=== PATIENT | female | born 2000 | race Two or more races ===

== ENCOUNTER 2018-07-10 07:30 | Inpatient (IN) | payer OTHER ==
[2018-07-10] MEDS ORDERED: fentaNYL 100 MCG/2 ML SDV EPIDUR PRN (19:35)
[2018-07-10] MEDS ORDERED: Ondansetron 4 MG/2 ML SDV IVPUSH PRN (19:35)
[2018-07-10] MEDS ORDERED: diphenhydrAMINE 50 MG/ML SDV IVPUSH PRN (19:35)
[2018-07-10] MEDS ORDERED: ePHEDrine 50 MG/ML SDV IVPUSH PRN (19:35)
[2018-07-10] MEDS ORDERED: Phenylephrine 1 MG in Sodium Chloride 0.9% 10 ML IV SCH (19:45)
[2018-07-10] MEDS ORDERED: Nalbuphine 20 MG/ML 1 ML Syringe IVPUSH PRN (20:03)
[2018-07-10] MEDS ORDERED: Sodium Chloride 0.9% 10 ML Syringe FLUSH PRN (20:03)
[2018-07-10] MEDS ORDERED: Oxytocin/Lactated Ringers 10 UNIT/1,000 ML BAG IV SCH ×2 (20:15)
[2018-07-10] MEDS: Lactated Ringers 1,000 ML IV SCH (20:36)
--- NOTE | 2018-07-10 21:15 | PCM.LDHP ---
L&D History of Present Illness - General Date of Service: 07/10/18 Admit Problem/Dx: Patient Status Order with Admit Dx/Problem 07/10/18 20:03 Patient Status [ADT] Routine Admission Diagnosis/Problem Admission Diagnosis/Problem Source of Information: Patient History Limitations: Reports: No Limitations - History of Present Illness Introduction:: Caitlin Gilliland is a 18-year-old at 39 weeks 3 days by LMP consistent with 7 week ultrasound (JUANJOSE 07/14/2018) who presents for induction of labor with trial of labor after section. She reports that she has had some occasional contractions since her last visit but they have been inconsistent and mild to moderate in the amount of pain. She denies any leaking of fluid or vaginal bleeding. Reports good movement. Timing/Duration: Reports: intermittent Location, : Reports: Abdomen, Pelvic Quality: Reports: Ache, Pressure Severity: Mild (To moderate) Associated Symptoms: Denies: vaginal bleeding, vaginal discharge, vaginal fluid Present Illness Comments:: Caitlin Gilliland is a 18-year-old 001 at 39 weeks 3 days by LMP consistent with seven-week ultrasound (JUANJOSE 07/14/2018) who presents for induction of labor with trial of labor after section. She has had routine care with myself starting at 7 weeks gestational age. Her has been overall uncomplicated. She received TDaP on 06/17/2018. She declined flu vaccine. labs Blood type: O+ Antibody screen: Negative First trimester hematocrit/hemoglobin: 38.3%/13.1 on 11/26/2017 Platelets: 217 on 11/26/2017 Urine culture: Mixed jose suggestive of contamination Rubella status: Immune Hepatitis B surface antigen: Negative RPR: Negative HIV: Negative Gonorrhea: Negative Chlamydia: Negative Anatomy ultrasound: Overall normal anatomy except for a cystic area in the right abdomen measuring 1.4 cm, anterior placenta, 338 g (40th percentile) . Detailed anatomy ultrasound done on 03/28/[address] Watson's office showed normal anatomy with gallbladder visualized, no evidence of abnormal cystic structure. EFW 790 g (71st percentile), growth ultrasound on 05/20/2018 showed marginal insertion of the cord, EFW 2215 g (91st percentile). Repeat growth ultrasound on 06/24/2018 showed EFW 3449 g (7 lbs. 10 oz.) (64th percentile ), anterior placenta. One hour glucose tolerance test: 118 Second trimester hematocrit/hemoglobin: 36.7%/12.3 on 03/28/2018 Platelets: 158 on 03/28/2018 GBS status: Negative complicated by: * History of section with last delivery on 07/07/2017. weight was 8 lbs. 6 oz. and was done for indications with a nuchal cord present. 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: 1 - Past Surgical History Female Surgical History: Reports: Section (07/07/2017) Social & Family History - Tobacco Use Smoking Status *Q: Never Smoker Tobacco Use Within Last Twelve Months: No - Tobacco Core Measures Tobacco Use/Smoking Within Last 30 Days: No Smokeless Tobacco Use in Last 30 Days: No - Alcohol Use Alcohol Use History: No - Recreational Drug Use Recreational Drug Use: No Drug Use in Last 12 Months: No - Living Situation & Occupation Living situation: Reports: Single, with Significant Other H&P Review of Systems - Review of Systems: Review Of Systems: See Below General: Denies: Fever, Chills, Malaise, Weakness, Fatigue HEENT: Reports: Headaches, Sinus Congestion. Denies: Post Nasal Drip, Sore Throat, Visual Changes Pulmonary: Denies: Shortness of Breath, Wheezing, Cough Cardiovascular: Denies: Chest Pain, Palpitations, Dyspnea on Exertion Gastrointestinal: Denies: Abdominal Pain, Constipation, Diarrhea, Nausea, Vomiting Genitourinary: Denies: Dysuria, Frequency, Burning, Pain, Urgency Musculoskeletal: Reports: Back Pain (And hip pain of ) Skin: Denies: Rash, Lesions Psychiatric: Denies: Depression, Anxiety L&D Exam - Exam Exam: See Below - Vital Signs Weight: 88.904 kg - OB Specific Contraction Duration (sec): 40-75 Contraction Frequency (min): 2-4 Contraction Intensity: Mild to Moderate Movement: Active Heart Tones: Present Heart Tones per Min: 130 (+15 x 15 accelerations, intermittent variable decelerations) Heart Rate (FHR) Variability: Moderate (6-25 bmp) Presentation: Vertex Estimated Weight: 7-7.5 pounds by Sae's - Colbert Score Colbert Score Cervix Position: Midposition Colbert Score Consistency: Soft Colbert Score Effacement: >80% (80%) Colbert Score Dilation: 3-4 cm (3.5 cm) Colbert Score Infant's Station: -3 (-4) Colbert Score Total: 8 - Exam General: Alert, Oriented HEENT: Conjunctiva Clear, EOMI Neck: Supple, Trachea Midline Lungs: Clear to Auscultation, Normal Respiratory Effort Cardiovascular: Regular Rate, Regular Rhythm GI/Abdominal Exam: Soft, Non-Tender, No Distention. No: Guarding, Rigid, Rebound Genitourinary: Normal external exam Back Exam: Normal Inspection, Full Range of Motion Extremities: Normal Inspection, No Pedal Edema Skin: Warm, Dry, Intact Psychiatric: Alert, Normal Affect, Normal Mood - Patient Data Lab Results Last 24 hrs: Laboratory Results - last 24 hr 07/10/18 Range/Units 20:15 WBC 7.09 (3.98-10.04) K/mm3 RBC 3.84 L (3.98-5.22) M/mm3 Hgb 9.3 L (11.2-15.7) gm/L Hct 29.5 L (34.1-44.9) % MCV 76.8 L (79.4-94.8) fl MCH 24.2 L (25.6-32.2) pg MCHC 31.5 L (32.2-35.5) g/dl RDW Std Deviation 41.7 (36.4-46.3) fL Plt Count 132 L (182-369) K/mm3 MPV 13.2 H (9.4-12.3) fl Neut % (Auto) 64.7 (34.0-71.1) % Lymph % (Auto) 25.2 (19.3-51.7) % Garza % (Auto) 9.0 (4.7-12.5) % Eos % (Auto) 0.7 (0.7-5.8) Baso % (Auto) 0.1 (0.1-1.2) % Neut # (Auto) 4.58 (1.56-6.13) K/mm3 Lymph # (Auto) 1.79 (1.18-3.74) K/mm3 Garza # (Auto) 0.64 H (0.24-0.36) K/mm3 Eos # (Auto) 0.05 (0.04-0.36) K/mm3 Baso # (Auto) 0.01 (0.01-0.08) K/mm3 Manual Slide Review Abnormal smear Result Diagrams: 07/10/18 20:15 - Problem List (1) 39 weeks gestation of SNOMED Code(s): 50223060 ICD Code: Z3A.39 - 39 WEEKS GESTATION OF Status: Acute Current Visit: Yes (2) History of section SNOMED Code(s): 002715145 ICD Code: Z98.891 - HISTORY OF UTERINE SCAR FROM PREVIOUS SURGERY Status: Acute Current Visit: Yes (3) History of section complicating SNOMED Code(s): 621984321, 654373066 ICD Code: O34.219 - MATERNAL CARE FOR UNSP TYPE SCAR FROM PREVIOUS DEL Status: Acute Current Visit: Yes (4) Short interval between pregnancies affecting in third trimester, antepartum SNOMED Code(s): 55317922, 80177205 ICD Code: O09.893 - SUPERVISION OF OTHER HIGH RISK PREGNANCIES, THIRD TRIMESTER Status: Acute Current Visit: Yes Problem List Initiated/Reviewed/Updated: Yes Orders Last 24hrs: Active Orders 24 hr Category Date Time Status Patient Status [ADT] Routine ADT 07/10/18 20:03 Active Activity as Tolerated [RC] PFP Care 07/10/18 20:03 Active Communication Order [RC] ASDIRECTED Care 07/10/18 20:03 Active Heart Tones [RC] ASDIRECTED Care 07/10/18 20:04 Active Non Stress Test [RC] PER UNIT ROUTINE Care 07/10/18 20:03 Active Notify Provider [RC] ASDIRECTED Care 07/10/18 19:35 Active Notify Provider [RC] PFP Care 07/10/18 20:03 Active Notify Provider [RC] PRN Care 07/10/18 20:03 Active Oxygen Therapy [RC] ASDIRECTED Care 07/10/18 19:35 Active Peripheral IV Care [RC] . DIRECTED Care 07/10/18 20:04 Active Pulse Oximetry [RC] ASDIRECTED Care 07/10/18 19:35 Active Vital Signs [RC] PER UNIT ROUTINE Care 07/10/18 20:03 Active Regular Diet [DIET] Diet 07/10/18 Breakfast Active RAPID PLASMA REAGIN,RPR [CHEM] Routine Lab 07/10/18 20:15 Received TYPE AND SCREEN [BBK] Stat Lab 07/10/18 20:15 Received Lactated Ringers [Ringers, Lactated] 1,000 ml Med 07/10/18 20:15 Active IV ASDIRECTED Nalbuphine [Nubain] Med 07/10/18 20:03 Active 10 mg IVPUSH Q2H PRN Ondansetron [Zofran] Med 07/10/18 19:35 Active 4 mg IVPUSH ONETIME PRN Oxytocin/Lactated Ringers [Pitocin in LR 10 Units/1,000 Med 07/10/18 20:15 Active ML] 10 unit in 1,000 ml IV .CONTINUOUS Oxytocin/Lactated Ringers [Pitocin in LR 10 Units/1,000 Med 07/10/18 20:15 Active ML] 10 unit in 1,000 ml IV TITRATE Phenylephrine [Dominik-Synephrine] 1 mg Med 07/10/18 19:45 Active Sodium Chloride 0.9% [Normal Saline] 10 ml IV TITRATE Sodium Chloride 0.9% [Saline Flush] Med 07/10/18 20:03 Active 10 ml FLUSH ASDIRECTED PRN diphenhydrAMINE [Benadryl] Med 07/10/18 19:35 Active 25 mg IVPUSH Q6H PRN ePHEDrine [ePHEDrine sulfate] Med 07/10/18 19:35 Active 5 mg IVPUSH ASDIRECTED PRN fentaNYL [Sublimaze] Med 07/10/18 19:35 Active 100 mcg EPIDUR Q3H PRN fentaNYL/Bupivacaine/NS/PF [hrmsaWLR-Hpfji-BE 2 MCG/ML- Med 07/10/18 19:45 Active 0.125%] 100 ml EP ASDIRECTED Electronic Heart Tones Ext w TOCO [WOMSER] Oth 07/10/18 20:03 Ordered Routine Electronic Heart Tones Internal [WOMSER] Per Unit Ot 07/10/18 20:03 Ordered Routine Peripheral IV Insertion Adult [OM.PC] Routine Oth 07/10/18 20:03 Ordered Resuscitation Status Routine Resus Stat 07/10/18 20:03 Ordered Medication Orders Diphenhydramine HCl (Benadryl) 25 mg IVPUSH Q6H PRN PRN Reason: pruritis Ephedrine Sulfate (Ephedrine Sulfate) 5 mg IVPUSH ASDIRECTED PRN PRN Reason: Hypotension Fentanyl (Sublimaze) 100 mcg EPIDUR Q3H PRN PRN Reason: Pain Fentanyl/Bupivacaine HCl (Vgpiyprp-Euzwm-Vm 2 Mcg/Ml-0.125%) 100 ml EP ASDIRECTED CLAY Phenylephrine HCl 1 mg/ Sodium (Chloride) 10.1 mls @ 1 mls/sec IV TITRATE CLAY; Protocol Lactated Ringer's (Ringers, Lactated) 1,000 mls @ 100 mls/hr IV ASDIRECTED CLAY Last Admin: 07/10/18 20:36 Dose: 100 mls/hr Oxytocin/Lactated Ringer's (Pitocin In Lr 10 Units/1,000 Ml) 10 unit in 1,000 mls @ 12 mls/hr IV TITRATE CLAY; Protocol Last Admin: 07/10/18 20:37 Dose: 2 munits/min, 12 mls/hr Oxytocin/Lactated Ringer's (Pitocin In Lr 10 Units/1,000 Ml) 10 unit in 1,000 mls @ 500 mls/hr IV .CONTINUOUS CLAY Nalbuphine HCl (Nubain) 10 mg IVPUSH Q2H PRN PRN Reason: pain Ondansetron HCl (Zofran) 4 mg IVPUSH ONETIME PRN PRN Reason: Nausea/Vomiting Sodium Chloride (Saline Flush) 10 ml FLUSH ASDIRECTED PRN PRN Reason: Keep Vein Open Assessment/Plan Comment:: Refer to observation for elective induction of labor with trial of labor after section. The risks, benefits and alternatives were discussed with the patient including risk of uterine rupture, injury to surrounding organs including bowel, bladder and ureters and infant as well as poor outcome. Patient signed consent for trial of labor after section with possible repeat section. Continue Pitocin for induction of labor Continuous monitoring Place IV and have Lactated Ringer's at 125 ml/hr May have small amounts of regular diet Activity as tolerated May have epidural as desired Plans to breast-feed after delivery Anticipate vaginal delivery unless otherwise indicated Wesley Noguera M.D. 9:23 PM 07/10/2018
[2018-07-10] MEDS ORDERED: Bupivacaine 0.25% 10 ML SDV ONE (22:00)
[2018-07-10] MEDS ORDERED: Lidocaine 1.5% with EPINEPHrine 1:200,000 5 ML Amp ONE (22:00)
[2018-07-11] MEDS: Lactated Ringers 1,000 ML IV SCH ×4 (02:37→10:31)
--- NOTE | 2018-07-11 03:04 | PCM.PREANE ---
Preanesthetic Assessment - Anesthesia/Transfusion/Family Hx Anesthesia History: Prior Anesthesia Without Reaction Family History of Anesthesia Reaction: No Transfusion History: No Prior Transfusion(s) Intubation History: Unknown - Review of Systems General: No Symptoms Pulmonary: No Symptoms Cardiovascular: No Symptoms Gastrointestinal: No Symptoms (GERD) Neurological: No Symptoms, Headache Other: Reports: None, Easy Bruising, Sinus Problem (sinus congestion) - Physical Assessment NPO Status Date: 07/10/18 NPO Status Time: 22:00 Pulse: 92 O2 Sat by Pulse Oximetry: 99 Respiratory Rate: 16 Blood Pressure: 127/80 Temperature: 36.9 C Vital Signs: Last Vital Signs Temp 36.9 C 07/10/18 20:03 Pulse 92 07/10/18 20:03 Resp 16 07/10/18 20:03 BP 127/80 07/10/18 20:03 Pulse Ox 99 07/10/18 20:03 Height: 1.65 m Weight: 88.904 kg ASA Class: 2 Mental Status: Alert & Oriented x3 Airway Class: Mallampati = 2 Dentition: Reports: Normal Dentition, Caries Thyro-Mental Finger Breadths: 3 Mouth Opening Finger Breadths: 3 ROM/Head Extension: Full Lungs: Clear to Auscultation, Normal Respiratory Effort Cardiovascular: Regular Rate, Regular Rhythm, No Murmurs - Lab Values: Laboratory Last Values WBC 7.09 K/mm3 (3.98-10.04) 07/10/18 20:15 RBC 3.84 M/mm3 (3.98-5.22) L 07/10/18 20:15 Hgb 9.3 gm/L (11.2-15.7) L 07/10/18 20:15 Hct 29.5 % (34.1-44.9) L 07/10/18 20:15 MCV 76.8 fl (79.4-94.8) L 07/10/18 20:15 MCH 24.2 pg (25.6-32.2) L 07/10/18 20:15 MCHC 31.5 g/dl (32.2-35.5) L 07/10/18 20:15 RDW Std Deviation 41.7 fL (36.4-46.3) 07/10/18 20:15 Plt Count 132 K/mm3 (182-369) L 07/10/18 20:15 MPV 13.2 fl (9.4-12.3) H 07/10/18 20:15 Neut % (Auto) 64.7 % (34.0-71.1) 07/10/18 20:15 Lymph % (Auto) 25.2 % (19.3-51.7) 07/10/18 20:15 Scott % (Auto) 9.0 % (4.7-12.5) 07/10/18 20:15 Eos % (Auto) 0.7 (0.7-5.8) 07/10/18 20:15 Baso % (Auto) 0.1 % (0.1-1.2) 07/10/18 20:15 Neut # (Auto) 4.58 K/mm3 (1.56-6.13) 07/10/18 20:15 Lymph # (Auto) 1.79 K/mm3 (1.18-3.74) 07/10/18 20:15 Scott # (Auto) 0.64 K/mm3 (0.24-0.36) H 07/10/18 20:15 Eos # (Auto) 0.05 K/mm3 (0.04-0.36) 07/10/18 20:15 Baso # (Auto) 0.01 K/mm3 (0.01-0.08) 07/10/18 20:15 Manual Slide Review Abnormal smear 07/10/18 20:15 Blood Type O POSITIVE 07/10/18 20:15 Gel Antibody Screen Negative 07/10/18 20:15 Above labs reviewed and noted and within acceptable ranges to proceed with epidural. - Allergies Allergies/Adverse Reactions: Allergies Allergy/AdvReac Type Severity Reaction Status Date / Time No Known Allergies Allergy Verified 07/10/18 20:08 - Anesthesia Plan Pre-Op Medication Ordered: None - Acknowledgements Anesthesia Type Planned: Epidural Pt an Appropriate Candidate for the Planned Anesthesia: Yes Alternatives and Risks of Anesthesia Discussed w Pt/Guardian: Yes Pt/Guardian Understands and Agrees with Anesthesia Plan: Yes PreAnesthesia Questionnaire - Past Health History Medical/Surgical History: Denies Medical/Surgical History HEENT History: Reports: None Cardiovascular History: Reports: None Respiratory History: Reports: None Gastrointestinal History: Reports: GERD (In ), Hepatitis (As a child, likely hepatitis A) [employer] History: Reports: - Past Surgical History Female Surgical History: Reports: Section (07/07/2017) - SUBSTANCE USE Smoking Status *Q: Never Smoker Tobacco Use Within Last Twelve Months: No Second Hand Smoke Exposure: No Recreational Drug Use History: No - HOME MEDS Home Medications: Home Meds PNV95/Ferrous Fumarate/FA [ Tablet] 1 each PO DAILY 07/10/18 [History] - CURRENT (IN HOUSE) MEDS Current Meds: Current Medications Diphenhydramine HCl (Benadryl) 25 mg IVPUSH Q6H PRN PRN Reason: pruritis Ephedrine Sulfate (Ephedrine Sulfate) 5 mg IVPUSH ASDIRECTED PRN PRN Reason: Hypotension Fentanyl (Sublimaze) 100 mcg EPIDUR Q3H PRN PRN Reason: Pain Fentanyl/Bupivacaine HCl (Yzmyousv-Jsvyf-Ce 2 Mcg/Ml-0.125%) 100 ml EP ASDIRECTED CLAY Phenylephrine HCl 1 mg/ Sodium (Chloride) 10.1 mls @ 1 mls/sec IV TITRATE CLAY; Protocol Lactated Ringer's (Ringers, Lactated) 1,000 mls @ 100 mls/hr IV ASDIRECTED CLAY Last Admin: 07/11/18 02:37 Dose: 900 mls/hr Oxytocin/Lactated Ringer's (Pitocin In Lr 10 Units/1,000 Ml) 10 unit in 1,000 mls @ 12 mls/hr IV TITRATE CLAY; Protocol Last Titration: 07/11/18 01:00 Dose: 6 munits/min, 36 mls/hr Oxytocin/Lactated Ringer's (Pitocin In Lr 10 Units/1,000 Ml) 10 unit in 1,000 mls @ 500 mls/hr IV .CONTINUOUS CLAY Nalbuphine HCl (Nubain) 10 mg IVPUSH Q2H PRN PRN Reason: pain Ondansetron HCl (Zofran) 4 mg IVPUSH ONETIME PRN PRN Reason: Nausea/Vomiting Sodium Chloride (Saline Flush) 10 ml FLUSH ASDIRECTED PRN PRN Reason: Keep Vein Open
[2018-07-11] MEDS: fentaNYL/Bupivacaine-NS 2 MCG/ML-0.125%/PF 100 ML Bag EP SCH ×2 (03:16→09:24)
--- NOTE | 2018-07-11 11:26 | PCM.PNLD ---
Labor Progress Note - VS & Meds Vital Signs: Last Vital Signs Temp 36.9 C 07/11/18 03:15 Pulse 92 07/11/18 03:15 Resp 16 07/11/18 03:15 BP 127/80 07/11/18 03:15 Pulse Ox 99 07/11/18 03:15 Active Medications: Current Medications Diphenhydramine HCl (Benadryl) 25 mg IVPUSH Q6H PRN PRN Reason: pruritis Ephedrine Sulfate (Ephedrine Sulfate) 5 mg IVPUSH ASDIRECTED PRN PRN Reason: Hypotension Fentanyl (Sublimaze) 100 mcg EPIDUR Q3H PRN PRN Reason: Pain Last Admin: 07/11/18 03:16 Dose: 100 mcg Fentanyl/Bupivacaine HCl (Ryhkruys-Ruoxj-Rx 2 Mcg/Ml-0.125%) 100 ml EP ASDIRECTED CLAY Last Admin: 07/11/18 09:24 Dose: 100 ml Phenylephrine HCl 1 mg/ Sodium (Chloride) 10.1 mls @ 1 mls/sec IV TITRATE CLAY; Protocol Lactated Ringer's (Ringers, Lactated) 1,000 mls @ 100 mls/hr IV ASDIRECTED CLAY Last Admin: 07/11/18 10:31 Dose: 100 mls/hr Oxytocin/Lactated Ringer's (Pitocin In Lr 10 Units/1,000 Ml) 10 unit in 1,000 mls @ 12 mls/hr IV TITRATE CLAY; Protocol Last Titration: 07/11/18 01:00 Dose: 6 munits/min, 36 mls/hr Oxytocin/Lactated Ringer's (Pitocin In Lr 10 Units/1,000 Ml) 10 unit in 1,000 mls @ 500 mls/hr IV .CONTINUOUS CLAY Nalbuphine HCl (Nubain) 10 mg IVPUSH Q2H PRN PRN Reason: pain Ondansetron HCl (Zofran) 4 mg IVPUSH ONETIME PRN PRN Reason: Nausea/Vomiting Sodium Chloride (Saline Flush) 10 ml FLUSH ASDIRECTED PRN PRN Reason: Keep Vein Open - Uterine Contractions Uterine Monitoring Mode: External [place] Contraction Frequency (min): 2-3 Contraction Duration (sec): 60-75 Contraction Intensity: Moderate Uterine Resting Tone: Soft - Monitoring Monitor Mode: Doppler/Auscultation Heart Rate (FHR) Baseline: 150 Heart Rate (FHR) Per Doppler: 150 Heart Rate (FHR) Variability: Moderate (6-25 bmp) Accelerations: Present, 15x15 Decelerations: None Strip Review: Category I - Vaginal Exam Dilation (cm): 8 Effacement (Percent): 90 Station: -2 Cervical Position: Anterior Sterile Vaginal Exam Performed By: Wesley Noguera Vaginal Exam Comment: Intrauterine pressure catheter inserted manually without complications. Mother and baby tolerated without difficulty. - Labor Progress (Free Text) Labor Progress: Patient with slow progress from this morning but uncertain of the intensity of contractions. She was having a good contraction pattern every 2-3 minutes. We will restart Pitocin to try to get to an adequate contraction pattern with greater than 200 [place] units. IUPC placed for monitoring of uterine contraction pattern Continue close monitoring of contraction pattern with Pitocin as well as monitoring. Continue with epidural for anesthesia. Anticipate vaginal delivery unless otherwise indicated. Wesley Noguera M.D. 11:28 AM 07/11/2018
[2018-07-11] MEDS ORDERED: Citric Acid/Sodium Citrate Solution 30 ML Cup PO ONE (12:56)
[2018-07-11] MEDS ORDERED: Metoclopramide 10 MG/2 ML SDV IVPUSH ONE (12:56)
[2018-07-11] MEDS ORDERED: Oxytocin 10 Units/1 ML SDV ONE (13:01)
[2018-07-11] MEDS ORDERED: ceFAZolin 1 GM Vial ONE (13:01)
[2018-07-11] MEDS ORDERED: Ketorolac 30 MG/ML SDV ONE (13:01)
[2018-07-11] MEDS ORDERED: Lactated Ringers 2,000 ML ONE (13:01)
[2018-07-11] MEDS ORDERED: Ondansetron 4 MG/2 ML SDV ONE (13:01)
[2018-07-11] MEDS ORDERED: Morphine PF 1 MG/ML Amp ONE (13:01)
[2018-07-11] MEDS ORDERED: Bupivacaine 0.5% 30 ML SDV ONE (13:02)
[2018-07-11] MEDS ORDERED: Lidocaine 2% with EPINEPHrine 1:200,000 20 ML SDV ONE (13:03)
[2018-07-11] MEDS ORDERED: Sodium Bicarbonate 8.4% 50 MEQ/50 ML SDV ONE (13:03)
[2018-07-11] MEDS ORDERED: Sodium Chloride 0.9% 10 ML Syringe FLUSH PRN ×2 (13:05→16:17)
[2018-07-11] MEDS ORDERED: ceFAZolin 2 GM in Premix Bag 1 BAG IV ONE (13:11)
[2018-07-11] MEDS ORDERED: Oxytocin/Lactated Ringers 10 UNIT/1,000 ML BAG IV SCH ×2 (13:15→16:17)
[2018-07-11] MEDS ORDERED: Lactated Ringers 1,000 ML IV SCH ×2 (13:15→16:17)
--- NOTE | 2018-07-11 13:42 | PCM.PNLD ---
Labor Progress Note - VS & Meds Vital Signs: Last Vital Signs Temp 36.9 C 07/11/18 03:15 Pulse 92 07/11/18 03:15 Resp 16 07/11/18 03:15 BP 127/80 07/11/18 03:15 Pulse Ox 99 07/11/18 03:15 Active Medications: Current Medications Diphenhydramine HCl (Benadryl) 25 mg IVPUSH Q6H PRN PRN Reason: pruritis Last Admin: 07/11/18 12:13 Dose: 25 mg Ephedrine Sulfate (Ephedrine Sulfate) 5 mg IVPUSH ASDIRECTED PRN PRN Reason: Hypotension Fentanyl (Sublimaze) 100 mcg EPIDUR Q3H PRN PRN Reason: Pain Last Admin: 07/11/18 03:16 Dose: 100 mcg Fentanyl/Bupivacaine HCl (Abtfwvgc-Vmcco-Vn 2 Mcg/Ml-0.125%) 100 ml EP ASDIRECTED CLAY Last Admin: 07/11/18 09:24 Dose: 100 ml Phenylephrine HCl 1 mg/ Sodium (Chloride) 10.1 mls @ 1 mls/sec IV TITRATE CLAY; Protocol Lactated Ringer's (Ringers, Lactated) 1,000 mls @ 100 mls/hr IV ASDIRECTED CLAY Last Admin: 07/11/18 10:31 Dose: 100 mls/hr Oxytocin/Lactated Ringer's (Pitocin In Lr 10 Units/1,000 Ml) 10 unit in 1,000 mls @ 12 mls/hr IV TITRATE CLAY; Protocol Last Titration: 07/11/18 11:05 Dose: 2 munits/min, 12 mls/hr Oxytocin/Lactated Ringer's (Pitocin In Lr 10 Units/1,000 Ml) 10 unit in 1,000 mls @ 500 mls/hr IV .CONTINUOUS CLAY Cefazolin Sodium/Dextrose 2 gm (/ Premix) 50 mls @ 100 mls/hr IV ONETIME ONE Stop: 07/11/18 13:40 Lactated Ringer's (Ringers, Lactated) 1,000 mls @ 125 mls/hr IV ASDIRECTED CLAY Oxytocin/Lactated Ringer's (Pitocin In Lr 10 Units/1,000 Ml) 10 unit in 1,000 mls @ 100 mls/hr IV ASDIRECTED CLAY; Protocol Nalbuphine HCl (Nubain) 10 mg IVPUSH Q2H PRN PRN Reason: pain Ondansetron HCl (Zofran) 4 mg IVPUSH ONETIME PRN PRN Reason: Nausea/Vomiting Sodium Chloride (Saline Flush) 10 ml FLUSH ASDIRECTED PRN PRN Reason: Keep Vein Open Discontinued Medications Citric Acid/Sodium Citrate (Bicitra Solution) 30 ml PO ONETIME ONE Stop: 07/11/18 12:57 Last Admin: 07/11/18 13:11 Dose: 30 ml Metoclopramide HCl (Reglan) 10 mg IVPUSH ONETIME ONE Stop: 07/11/18 12:57 Last Admin: 07/11/18 13:11 Dose: 10 mg Sodium Chloride (Saline Flush) 10 ml FLUSH ASDIRECTED PRN PRN Reason: Keep Vein Open - Uterine Contractions Uterine Monitoring Mode: IUPC Contraction Frequency (min): 2-3 Contraction Duration (sec): 60-75 Contraction Intensity: Moderate Uterine Resting Tone: Soft - Monitoring Monitor Mode: Doppler/Auscultation Heart Rate (FHR) Baseline: 150 Heart Rate (FHR) Per Doppler: 150 Heart Rate (FHR) Variability: Moderate (6-25 bmp) Accelerations: Present, 15x15 Decelerations: None Strip Review: Category I - Vaginal Exam Dilation (cm): 9 Effacement (Percent): 100 Station: 0 Cervical Position: Anterior Sterile Vaginal Exam Performed By: Wesley Noguera Vaginal Exam Comment: Cervix dilated to 8 cm on exam with loss of edema of the cervix on the right side. With contraction the cervix would dilate to 9.5 to complete and head would come down to +1 station. Head would retract to 0 station with resolution of the contraction - Labor Progress (Free Text) Labor Progress: Patient reporting significant pain and pressure in her buttocks. She is thinking that she would like to proceed to section given the slow progress that she has made with induction of labor. Discussed with patient that she likely would be successful with a vaginal delivery but may take additional time. Patient requested time to speak with her significant other and after their discussion she desires to proceed with section. Due to patient request for repeat section we will proceed with repeat section. Discontinue Pitocin at this time. Contact anesthesia and operating room for preparation for section. Patient to receive 2 g Ancef IV prior to procedure. Wesley Noguera M.D. 1:20 PM 07/11/2018
[2018-07-11] MEDS ORDERED: fentaNYL 100 MCG/2 ML SDV ONE (14:01)
[2018-07-11] MEDS ORDERED: diphenhydrAMINE 50 MG/ML SDV IVPUSH PRN ×2 (14:08→16:17)
[2018-07-11] MEDS ORDERED: fentaNYL 100 MCG/2 ML SDV IVPUSH PRN (14:08)
[2018-07-11] MEDS ORDERED: Ondansetron 4 MG/2 ML SDV IVPUSH PRN (14:08)
[2018-07-11] MEDS ORDERED: Meperidine PF 50 MG/ML Syringe ONE (14:29)
[2018-07-11] MEDS ORDERED: ePHEDrine/Normal Saline 25 MG/5 ML Syringe ONE (14:38)
--- NOTE | 2018-07-11 14:59 | PCM.POSTAN ---
POST ANESTHESIA ASSESSMENT - MENTAL STATUS Mental Status: Alert, Oriented - VITAL SIGNS Pulse Rate: 100 SaO2: 98 Resp Rate: 20 Blood Pressure: 130/60 Temperature: 101.2 F - RESPIRATORY Respiratory Status: Respiratory Rate WNL, Airway Patent, O2 Saturation Stable, Supplemental Oxygen - CARDIOVASCULAR CV Status: Pulse Rate WNL, Blood Pressure Stable - GASTROINTESTINAL GI Status: No Symptoms - PAIN Pain Score: 0 - POST OP HYDRATION Hydration Status: Adequate & Stable
--- NOTE | 2018-07-11 15:04 | PCM.OPNOTE ---
- General Post-Op/Procedure Note Date of Surgery/Procedure: 07/11/18 Operative Procedure(s): Repeat section after failed induction of labor after section Findings: Live male infant delivered in vertex presentation with vacuum assistance at 1417. weight of 4180 g (9 pounds 3.4 ounces). Apgars 9 and 9. Overall normal-appearing uterus, bilateral fallopian tubes and ovaries. Pre Op Diagnosis: Arrest of labor at 8 cm, history of section, failed induction of labor after section, maternal request for repeat section Post-Op Diagnosis: Same, maternal hemorrhage Anesthesia Technique: Epidural Primary Surgeon: Wesley Noguera Anesthesia Provider: Ramona Benavidez Children'S Tutor Nursery: Joaquin Rehman Children'S Tutor Nursery: Jeff Alexis Reason Children'S Tutor Nursery Was Necessary: Patient safety and reduction of morbidity and mortality Role of Children'S Tutor Nursery: Retraction and knowledge of the procedure Pathology: None Fluid Replacement, Intraop: 1,500 Output, Urine Amount: 175 EBL in mLs: 1,200 Complications: Maternal hemorrhage with EBL 1200 mL Condition: Good Free Text/Narrative:: Intake & Output 07/11/18 07/11/18 07/11/18 06:59 14:59 22:59 Intake Total 4060 Output Total 1425 Balance 2635 Duration of procedure: 38 minutes Procedure in Detail: The patient was seen on labor and delivery in labor and delivery room #2. Evaluation for induction of labor after section was performed and the patient was making slow progress. The infant was tolerating the induction without significant difficulty but due to the slow dilation of the cervix mother requested a repeat section. The risks, benefits and complications were discussed with the patient. The patient desired to proceed with section and appropriate consents were reviewed. The patient was taken to operating room #1. A Time Out was held and the patient was identified using 2 identifiers and the procedure was confirmed. The patient was given medications through epidural anesthesia and was placed in dorsal supine position with leftward tilt. She was given 2 g Ancef for antibiotic prophylaxis. The patient was prepped and draped in the usual sterile manner. The abdominal skin was tested and the epidural anesthesia was found to be adequate. The skin was injected with 0.5% marcaine for local anesthesia. A Pfannenstiel skin incision was made and carried down through the subcutaneous tissue to the fascia with the scapel. The fascia was nicked in the midline using a scalpel and the fascial incision was extended transversely with Fischer scissors. The inferior aspect of the fascia was grasped with Murali clamps and tented upwards. The fascia was from the underlying rectus muscle bluntly and sharply with Fischer scissors. Attention was then turned to the superior aspect of the fascia and was grasped using Murali clamps and tented upwards. The underlying rectus muscle was dissected off bluntly and sharply with Fischer scissors. The peritoneum was identified and grasped using hemostats and using Metzenbaum scissors the overlying layers of tissue were incised with the scissors. The peritoneal tissue was then grasped using a hemostat and entered sharply with Metzenbaum scissors and the rectus muscles were using blunt force traction. The utero-vesical peritoneal reflection was identified and the peritoneum was incised with Metzenabaum scissors and transversely extended. The bladder blade was inserted and the lower uterine segment was identified. A low transverse uterine incision was made sharply with a scalpel and extended laterally bluntly. The infant's head was brought to the uterine incision, the bladder blade was removed and the infant was attempted to be delivered but unsuccessful with fundal pressure alone. A Ugalde type Kiwi vacuum was applied to the head at the flexion point on the head and vacuum was applied to the green area on the vacuum device and with fundal pressure and gentle traction with the vacuum the head was delivered atraumatically with the vacuum device. Vacuum suction was applied to the head for approximately 30 seconds. On 07/11/2018 a live male infant was delivered in vertex position at 1417, wt of 4180 grams, 9 pounds and 3.4 ounces. APGARS were 9 & 9. The nose and mouth were suctioned with bulb suction , the cord was doubly clamped and cut and infant was transferred to the awaiting shot man, Dr. Delarosa. The placenta was removed intact and appeared normal with a three vessel cord. The uterus was exteriorized and the uterine cavity was cleaned using lap sponges. The hysterotomy was closed with a running locked suture of 0-Vicryl. A second suture of 0-Vicryl was used to imbricate the hysterotomy in a horizontal fashion. The hysterotomy was noted to have some bleeding at the right apex of the hysterotomy and a [id number] suture was placed over this area with 0 Vicryl. The hysterotomy was hemostatic at this time. The uterus, tubes and ovaries appeared overall normal. The uterus was then returned into the abdominal cavity. The hysterotomy was noted to remain hemostatic inside the abdominal cavity. The fascia was noted to be hemostatic and the fascia was then reapproximated with running sutures of 0-Vicryl. The skin was reapproximated using 4-0 Monocryl and Steri-strips were applied over the incision. Instrument, sponge, and needle counts were correct prior to the abdominal closure and at the conclusion of the case.
[2018-07-11] MEDS ORDERED: Lanolin 100% Cream 7 GM Tube TOP PRN (16:17)
[2018-07-11] MEDS ORDERED: ePHEDrine 50 MG/ML SDV IVPUSH PRN (16:17)
[2018-07-11] MEDS ORDERED: diphenhydrAMINE 50 MG/ML SDV IV PRN (16:17)
[2018-07-11] MEDS ORDERED: Acetaminophen/oxyCODONE 325-5 MG Tab PO PRN (16:17)
[2018-07-11] MEDS ORDERED: Naloxone 0.4 MG/ML SDV IVPUSH PRN (16:17)
[2018-07-11] MEDS ORDERED: Magnesium Hydroxide 400 MG/5 ML Susp 30 ML Cup PO PRN (16:17)
[2018-07-11] MEDS ORDERED: Lactated Ringers 1,000 ML IV ONE (16:59)
[2018-07-11] MEDS: Acetaminophen/oxyCODONE 325-5 MG Tab PO PRN (17:47)
[2018-07-11] MEDS: Ketorolac 30 MG/ML SDV IVPUSH SCH (20:34)
[2018-07-11] MEDS: Docusate Sodium 100 MG Cap PO PRN (20:35)
[2018-07-12] MEDS: Ferrous Sulfate 325 MG Tab PO SCH ×3 (00:33→17:41)
[2018-07-12] MEDS: Ketorolac 30 MG/ML SDV IVPUSH SCH ×2 (02:22→08:48)
[2018-07-12] MEDS ORDERED: Lactated Ringers 1,000 ML IV SCH ×2 (06:50→22:30)
[2018-07-12] MEDS: Acetaminophen/oxyCODONE 325-5 MG Tab PO PRN ×3 (07:18→20:39)
--- NOTE | 2018-07-12 07:51 | PCM48HPAN ---
Post Anesthesia Note - EVALUATION WITHIN 48HRS OF ANESTHETIC Vital Signs in Normal Range: Yes Patient Participated in Evaluation: Yes Respiratory Function Stable: Yes Airway Patent: Yes Cardiovascular Function Stable: Yes Hydration Status Stable: Yes Pain Control Satisfactory: Yes Nausea and Vomiting Control Satisfactory: Yes Mental Status Recovered: Yes Pulse Rate: 119 Resp Rate: 19 Temperature: 36.9 C Blood Pressure: 121/73 - COMMENTS/OBSERVATIONS Free Text/Narrative:: no anesthesia complications noted
[2018-07-12] MEDS: Prenatal Multivitamin with Calcium/Folic Acid/Iron Tab PO SCH (08:48)
--- NOTE | 2018-07-12 08:50 | PCM.SN ---
- Free Text/Narrative Note: Post Operative Progress Note POD # 1 Subjective: Doing well overall. Ambulating without difficulty reports that she did have some lightheadedness with the first 2 times with ambulation yesterday. Reports that she is emulating without difficulty over night. Lochia moderate with fundal massage. Dang draining clear urine. Not passing flatus at this time. Tolerating regular diet without nausea or vomiting. Pain controlled with oral medications and IV Toradol. Pumping breast milk this morning with minimal difficulty. Objective: Vitals: Vital Signs - 24 hr 07/11/18 07/11/18 07/11/18 14:54 14:58 15:06 Temperature 38.4 C H Temperature [ Axillary] Temperature [ 38.3 C H Temporal] Pulse, 100 Peripheral Respiratory 20 20 23 H Rate Blood Pressure 130/60 Blood Pressure 130/60 [Upper Arm] O2 Sat by Pulse 98 98 100 Oximetry 07/11/18 07/11/18 07/11/18 15:10 15:25 15:40 Temperature Temperature [ Axillary] Temperature [ 37.4 C 37.8 C 37.8 C Temporal] Pulse, Peripheral Respiratory 24 H 22 H 19 Rate Blood Pressure Blood Pressure 116/62 109/77 127/69 [Upper Arm] O2 Sat by Pulse 99 96 97 Oximetry 07/11/18 07/11/18 07/11/18 15:54 16:00 16:30 Temperature 38.2 C H Temperature [ 38.3 C H Axillary] Temperature [ Temporal] Pulse, 114 H 121 H Peripheral Respiratory 16 16 Rate Blood Pressure 91/72 119/73 Blood Pressure [Upper Arm] O2 Sat by Pulse 98 99 Oximetry 07/11/18 07/11/18 07/11/18 16:49 17:10 17:45 Temperature Temperature [ Axillary] Temperature [ Temporal] Pulse, 126 H 121 H 110 H Peripheral Respiratory Rate Blood Pressure Blood Pressure [Upper Arm] O2 Sat by Pulse 97 99 98 Oximetry 07/11/18 07/11/18 07/11/18 17:53 17:54 18:01 Temperature 38.7 C H Temperature [ Axillary] Temperature [ Temporal] Pulse, 118 H 105 H 89 Peripheral Respiratory 18 20 Rate Blood Pressure 133/73 135/78 Blood Pressure [Upper Arm] O2 Sat by Pulse 91 L 97 Oximetry 07/11/18 07/11/18 07/11/18 19:21 19:22 20:13 Temperature 38.4 C H 37.5 C Temperature [ Axillary] Temperature [ Temporal] Pulse, 134 H 142 H 123 H Peripheral Respiratory 17 Rate Blood Pressure 120/79 Blood Pressure [Upper Arm] O2 Sat by Pulse 98 98 97 Oximetry 07/11/18 07/11/18 07/12/18 21:47 23:24 00:30 Temperature 37.5 C 37.0 C Temperature [ Axillary] Temperature [ Temporal] Pulse, 129 H 109 H 130 H Peripheral Respiratory 16 17 Rate Blood Pressure 118/72 123/75 Blood Pressure [Upper Arm] O2 Sat by Pulse 95 96 96 Oximetry 07/12/18 07/12/18 07/12/18 01:39 02:13 03:32 Temperature 37.6 C 36.9 C Temperature [ Axillary] Temperature [ Temporal] Pulse, 124 H 128 H 128 H Peripheral Respiratory 20 19 Rate Blood Pressure 116/89 121/73 Blood Pressure [Upper Arm] O2 Sat by Pulse 94 L 98 97 Oximetry 07/12/18 07/12/18 07/12/18 04:43 05:34 07:51 Temperature 36.9 C Temperature [ Axillary] Temperature [ Temporal] Pulse, 103 H 119 H 119 H Peripheral Respiratory 19 Rate Blood Pressure 121/73 Blood Pressure [Upper Arm] O2 Sat by Pulse 94 L 97 Oximetry Physical Exam General: Alert and oriented, no acute distress Lungs: Clear to auscultation bilaterally Heart: Tachycardia with regular rhythm Abdomen: Soft, minimal appropriate tenderness, non-distended, fundus midline, nontender and at the umbilicus Incision: Clean, dry and intact, no erythema, bleeding or drainage with Steri- Strips in place Extremities: Trace edema in bilateral lower extremities to mid shins Labs: Laboratory Tests 07/10/18 07/10/18 07/11/18 Range/Units 20:15 20:15 16:40 WBC 7.09 13.91 H (3.98-10.04) K/mm3 RBC 3.84 L 3.51 L (3.98-5.22) M/mm3 Hgb 9.3 L 8.4 L (11.2-15.7) gm/L Hct 29.5 L 26.9 L (34.1-44.9) % MCV 76.8 L 76.6 L (79.4-94.8) fl MCH 24.2 L 23.9 L (25.6-32.2) pg MCHC 31.5 L 31.2 L (32.2-35.5) g/dl RDW Std Deviation 41.7 41.3 (36.4-46.3) fL Plt Count 132 L 102 L (182-369) K/mm3 MPV 13.2 H TNP (9.4-12.3) fl Neut % (Auto) 64.7 87.6 H (34.0-71.1) % Lymph % (Auto) 25.2 6.2 L (19.3-51.7) % [place] % (Auto) 9.0 6.0 (4.7-12.5) % Eos % (Auto) 0.7 0.1 L (0.7-5.8) Baso % (Auto) 0.1 0.0 L (0.1-1.2) % Neut # (Auto) 4.58 12.18 H (1.56-6.13) K/mm3 Lymph # (Auto) 1.79 0.86 L (1.18-3.74) K/mm3 [place] # (Auto) 0.64 H 0.84 H (0.24-0.36) K/mm3 Eos # (Auto) 0.05 0.01 L (0.04-0.36) K/mm3 Baso # (Auto) 0.01 0.00 L (0.01-0.08) K/mm3 Manual Slide Review Abnormal smear Abnormal smear Sodium (136-145) mEq/L Potassium (3.5-5.1) mEq/L Chloride (98-107) mEq/L Carbon Dioxide (21-32) mEq/L Anion Gap (5-15) BUN (7-18) mg/dL Creatinine (0.55-1.02) mg/dL Est Cr Clr Drug Dosing mL/min Estimated GFR (MDRD) (>60) mL/min BUN/Creatinine Ratio (14-18) Glucose (74-106) mg/dL Calcium (8.5-10.1) mg/dL Total Bilirubin (0.2-1.0) mg/dL AST (15-37) U/L ALT (14-59) U/L Alkaline Phosphatase (46-116) U/L Total Protein (6.4-8.2) g/dl Albumin (3.4-5.0) g/dl Globulin gm/dL Albumin/Globulin Ratio (1-2) Blood Type O POSITIVE Gel Antibody Screen Negative 07/11/18 07/12/18 07/12/18 Range/Units 21:20 05:49 05:49 WBC 16.17 H 13.22 H (3.98-10.04) K/mm3 RBC 3.50 L 2.97 L (3.98-5.22) M/mm3 Hgb 8.5 L 7.2 L* (11.2-15.7) gm/L Hct 26.7 L 22.9 L (34.1-44.9) % MCV 76.3 L 77.1 L (79.4-94.8) fl MCH 24.3 L 24.2 L (25.6-32.2) pg MCHC 31.8 L 31.4 L (32.2-35.5) g/dl RDW Std Deviation 41.9 41.6 (36.4-46.3) fL Plt Count 88 L 82 L (182-369) K/mm3 MPV TNP 13.0 H (9.4-12.3) fl Neut % (Auto) 85.9 H 85.4 H (34.0-71.1) % Lymph % (Auto) 7.1 L 7.0 L (19.3-51.7) % [place] % (Auto) 6.6 7.1 (4.7-12.5) % Eos % (Auto) 0.1 L 0.2 L (0.7-5.8) Baso % (Auto) 0.1 0.1 (0.1-1.2) % Neut # (Auto) 13.90 H 11.28 H (1.56-6.13) K/mm3 Lymph # (Auto) 1.15 L 0.93 L (1.18-3.74) K/mm3 [place] # (Auto) 1.07 H 0.94 H (0.24-0.36) K/mm3 Eos # (Auto) 0.01 L 0.03 L (0.04-0.36) K/mm3 Baso # (Auto) 0.01 0.01 (0.01-0.08) K/mm3 Manual Slide Review Abnormal smear Abnormal smear Sodium 136 (136-145) mEq/L Potassium 4.0 (3.5-5.1) mEq/L Chloride 105 (98-107) mEq/L Carbon Dioxide 24 (21-32) mEq/L Anion Gap 11.0 (5-15) BUN 7 (7-18) mg/dL Creatinine 0.8 (0.55-1.02) mg/dL Est Cr Clr Drug Dosing 100.94 mL/min Estimated GFR (MDRD) > 60 (>60) mL/min BUN/Creatinine Ratio 8.8 L (14-18) Glucose 87 (74-106) mg/dL Calcium 7.7 L (8.5-10.1) mg/dL Total Bilirubin 0.6 (0.2-1.0) mg/dL AST 19 (15-37) U/L ALT 11 L (14-59) U/L Alkaline Phosphatase 110 (46-116) U/L Total Protein 4.7 L (6.4-8.2) g/dl Albumin 1.8 L (3.4-5.0) g/dl Globulin 2.9 gm/dL Albumin/Globulin Ratio 0.6 L (1-2) Blood Type Gel Antibody Screen ASSESSMENT: 18-year-old female 002 s/p repeat section POD #1 for history of section and failed induction of labor after section, complicated by maternal hemorrhage with EBL 1200 mL during delivery and postoperative thrombocytopenia PLAN: Doing well Pumping breast milk with minimal difficulty and plans to breast feed once infant available from the nursery. Assist as needed Incision healing well. Continue to keep clean and dry. Lochia minimal. Continue to monitor for appropriate lochia. Continue routine post-operative care Patient with hemoglobin of 7.2 and tachycardia. Offered blood transfusion this morning and she declines at this time. She would like to have a repeat blood count this afternoon to see where she is at and decide if she would like to have a blood transfusion. Discussed with patient that if she does become symptomatic with lightheadedness, dizziness, shortness of breath or chest pain that I would recommend for her to have a blood transfusion. Patient states understanding. Patient currently on iron supplementation twice a day with meals. Plan to repeat CBC at 1400 today Patient with mild fever throughout the afternoon and evening on postop day #0 that may have been related to a medication reaction. Afebrile this morning and no other evidence of endometritis or other infection. Will continue to monitor for any signs of infection. Anticipate discharge home tomorrow if patient continues to improve Wesley Noguera MD 8:46 AM 07/12/2018
[2018-07-12] MEDS: Docusate Sodium 100 MG Cap PO PRN (08:52)
[2018-07-12] MEDS: Ibuprofen 600 MG Tab PO PRN (17:41)
[2018-07-13] MEDS: Ibuprofen 600 MG Tab PO PRN ×3 (00:37→21:31)
[2018-07-13] MEDS: Acetaminophen/oxyCODONE 325-5 MG Tab PO PRN ×4 (04:02→21:32)
--- NOTE | 2018-07-13 08:19 | PCM.PNPP ---
- General Info Date of Service: 07/13/18 Subjective Update: POD2 Doing well. Ambulating, voiding tolerating POs and passing flatus. Not symptomatic with anemia. Functional Status: Reports: Pain Controlled - Review of Systems General: Reports: No Symptoms HEENT: Reports: No Symptoms Pulmonary: Reports: No Symptoms Cardiovascular: Reports: No Symptoms Gastrointestinal: Reports: No Symptoms Genitourinary: Reports: No Symptoms Musculoskeletal: Reports: No Symptoms Skin: Reports: No Symptoms Neurological: Reports: No Symptoms Psychiatric: Reports: No Symptoms - General Info Date of Service: 07/13/18 - Patient Data Vital Signs - Most Recent: Last Vital Signs Temp 36.6 C 07/13/18 04:59 Pulse 101 H 07/13/18 04:59 Resp 20 07/13/18 04:59 BP 126/77 07/13/18 04:59 Pulse Ox 98 07/13/18 04:59 Weight - Most Recent: 88.904 kg Lab Results - Last 24 Hours: Laboratory Results - last 24 hr 07/10/18 07/12/18 07/13/18 Range/Units 20:15 14:36 06:35 WBC 12.60 H 12.59 H (3.98-10.04) K/mm3 RBC 3.58 L 3.14 L (3.98-5.22) M/mm3 Hgb 8.6 L 7.5 L (11.2-15.7) gm/L Hct 27.8 L 24.4 L (34.1-44.9) % MCV 77.7 L 77.7 L (79.4-94.8) fl MCH 24.0 L 23.9 L (25.6-32.2) pg MCHC 30.9 L 30.7 L (32.2-35.5) g/dl RDW Std Deviation 42.6 43.0 (36.4-46.3) fL Plt Count 111 L 114 L (182-369) K/mm3 MPV 12.8 H 13.0 H (9.4-12.3) fl Neut % (Auto) 85.7 H 81.8 H (34.0-71.1) % Lymph % (Auto) 6.3 L 10.0 L (19.3-51.7) % [place] % (Auto) 7.3 7.1 (4.7-12.5) % Eos % (Auto) 0.4 L 0.8 (0.7-5.8) Baso % (Auto) 0.1 0.1 (0.1-1.2) % Neut # (Auto) 10.80 H 10.31 H (1.56-6.13) K/mm3 Lymph # (Auto) 0.80 L 1.26 (1.18-3.74) K/mm3 [place] # (Auto) 0.92 H 0.89 H (0.24-0.36) K/mm3 Eos # (Auto) 0.05 0.10 (0.04-0.36) K/mm3 Baso # (Auto) 0.01 0.01 (0.01-0.08) K/mm3 Manual Slide Review Abnormal smear RPR Non-reactive (NONREACTIVE) Med Orders - Current: Current Medications Diphenhydramine HCl (Benadryl) 25 mg IVPUSH Q6H PRN PRN Reason: Itching or Nausea Diphenhydramine HCl (Benadryl) 25 mg IV Q4H PRN PRN Reason: Itching Docusate Sodium (Colace) 100 mg PO Q12H PRN PRN Reason: Constipation Last Admin: 07/12/18 08:52 Dose: 100 mg Emollient Ointment (Lansinoh Hpa) 0 gm TOP ASDIRECTED PRN PRN Reason: Sore Nipples Ephedrine Sulfate (Ephedrine Sulfate) 5 mg IVPUSH SEECOMMENT PRN PRN Reason: Other Ferrous Sulfate (Ferrous Sulfate) 325 mg PO BIDMEALS [facility] Last Admin: 07/12/18 17:41 Dose: 325 mg Oxytocin/Lactated Ringer's (Pitocin In Lr 10 Units/1,000 Ml) 10 unit in 1,000 mls @ 100 mls/hr IV .CONTINUOUS CLAY Lactated Ringer's (Ringers, Lactated) 1,000 mls @ 125 mls/hr IV ASDIRECTED [facility] Last Admin: 07/12/18 06:54 Dose: 125 mls/hr Ibuprofen (Motrin) 600 mg PO Q6H PRN PRN Reason: Pain Last Admin: 07/13/18 00:37 Dose: 600 mg Magnesium Hydroxide (Milk Of Magnesia) 30 ml PO BEDTIME PRN PRN Reason: Constipation Naloxone HCl (Narcan) 0.1 mg IVPUSH SEECOMMENT PRN PRN Reason: Respiratory Depression Oxycodone/Acetaminophen (Percocet 325-5 Mg) 1 tab PO Q6H PRN PRN Reason: Pain (moderate 4-6) Oxycodone/Acetaminophen (Percocet 325-5 Mg) 2 tab PO Q6H PRN PRN Reason: Pain (severe 7-10) Last Admin: 07/13/18 04:02 Dose: 2 tab Prenat Multivit/[place]/Iron/Folic Ac ( Plus Iron) 1 each PO DAILY CLAY Last Admin: 07/12/18 08:48 Dose: 1 each Sodium Chloride (Saline Flush) 10 ml FLUSH ASDIRECTED PRN PRN Reason: Keep Vein Open Discontinued Medications Bupivacaine HCl (Marcaine 0.5%) Confirm Administered Dose 30 ml .ROUTE .STK-MED ONE Stop: 07/11/18 13:03 Last Admin: 07/11/18 14:09 Dose: 20 ml Bupivacaine HCl (Sensorcaine-Mpf 0.25%) 10 ml .ROUTE .STK-MED ONE Stop: 07/10/18 22:01 Cefazolin Sodium (Ancef) Confirm Administered Dose 2 gm .ROUTE .STK-MED ONE Stop: 07/11/18 13:02 Citric Acid/Sodium Citrate (Bicitra Solution) 30 ml PO ONETIME ONE Stop: 07/11/18 12:57 Last Admin: 07/11/18 13:11 Dose: 30 ml Diphenhydramine HCl (Benadryl) 25 mg IVPUSH Q6H PRN PRN Reason: pruritis Last Admin: 07/11/18 12:13 Dose: 25 mg Diphenhydramine HCl (Benadryl) 25 mg IVPUSH Q6H PRN PRN Reason: pruritis Stop: 07/11/18 23:00 Ephedrine Sulfate (Ephedrine Sulfate) 5 mg IVPUSH ASDIRECTED PRN PRN Reason: Hypotension Ephedrine Sulfate (Ephedrine In Ns) Confirm Administered Dose 25 mg .ROUTE .STK- MED ONE Stop: 07/11/18 14:39 Fentanyl (Sublimaze) 100 mcg EPIDUR Q3H PRN PRN Reason: Pain Last Admin: 07/11/18 03:16 Dose: 100 mcg Fentanyl (Sublimaze) Confirm Administered Dose 100 mcg .ROUTE .STK-MED ONE Stop: 07/11/18 14:02 Fentanyl (Sublimaze) 50 mcg IVPUSH Q5M PRN PRN Reason: Pain Stop: 07/11/18 23:00 Fentanyl/Bupivacaine HCl (Rqrtxopr-Mcaic-Us 2 Mcg/Ml-0.125%) 100 ml EP ASDIRECTED CLAY Last Admin: 07/11/18 09:24 Dose: 100 ml Phenylephrine HCl 1 mg/ Sodium (Chloride) 10.1 mls @ 1 mls/sec IV TITRATE CLAY; Protocol Lactated Ringer's (Ringers, Lactated) 1,000 mls @ 100 mls/hr IV ASDIRECTED CLAY Last Admin: 07/11/18 10:31 Dose: 100 mls/hr Oxytocin/Lactated Ringer's (Pitocin In Lr 10 Units/1,000 Ml) 10 unit in 1,000 mls @ 12 mls/hr IV TITRATE CLAY; Protocol Last Titration: 07/11/18 11:05 Dose: 2 munits/min, 12 mls/hr Oxytocin/Lactated Ringer's (Pitocin In Lr 10 Units/1,000 Ml) 10 unit in 1,000 mls @ 500 mls/hr IV .CONTINUOUS CLAY Cefazolin Sodium/Dextrose 2 gm (/ Premix) 50 mls @ 100 mls/hr IV ONETIME ONE Stop: 07/11/18 13:40 Last Admin: 07/12/18 15:04 Dose: Not Given Lactated Ringer's (Ringers, Lactated) 1,000 mls @ 125 mls/hr IV ASDIRECTED CLAY Oxytocin/Lactated Ringer's (Pitocin In Lr 10 Units/1,000 Ml) 10 unit in 1,000 mls @ 100 mls/hr IV ASDIRECTED CLAY; Protocol Lactated Ringer's (Ringers, Lactated) Confirm Administered Dose 2,000 mls @ as directed .ROUTE .STK-MED ONE Stop: 07/11/18 13:02 Lactated Ringer's (Ringers, Lactated) 1,000 mls @ 125 mls/hr IV ASDIRECTED CLAY Stop: 07/12/18 00:16 Last Admin: 07/11/18 19:09 Dose: 125 mls/hr Lactated Ringer's (Ringers, Lactated) 1,000 mls @ 999 mls/hr IV .BOLUS ONE Stop: 07/11/18 17:59 Last Admin: 07/11/18 17:15 Dose: 999 mls/hr Lactated Ringer's (Ringers, Lactated) 1,000 mls @ 125 mls/hr IV ASDIRECTED [facility] Ketorolac Tromethamine (Toradol) Confirm Administered Dose 30 mg .ROUTE .STK- MED ONE Stop: 07/11/18 13:02 Ketorolac Tromethamine (Toradol) 30 mg IVPUSH Q6H [facility] Stop: 07/12/18 08:31 Last Admin: 07/12/18 08:48 Dose: 30 mg Lidocaine/Epinephrine (Xylocaine-Mpf 2%-Epi 1:200,000) Confirm Administered Dose 20 ml .ROUTE .STK-MED ONE Stop: 07/11/18 13:04 Lidocaine/Epinephrine (Xylocaine-Mpf 1.5% W/Epinephrine 1:200,000) 5 ml .ROUTE .STK-MED ONE Stop: 07/10/18 22:01 Meperidine HCl (Demerol) Confirm Administered Dose 50 mg .ROUTE .STK-MED ONE Stop: 07/11/18 14:30 Metoclopramide HCl (Reglan) 10 mg IVPUSH ONETIME ONE Stop: 07/11/18 12:57 Last Admin: 07/11/18 13:11 Dose: 10 mg Morphine Sulfate (Duramorph Pf) Confirm Administered Dose 1 mg .ROUTE .STK-MED ONE Stop: 07/11/18 13:02 Nalbuphine HCl (Nubain) 10 mg IVPUSH Q2H PRN PRN Reason: pain Ondansetron HCl (Zofran) 4 mg IVPUSH ONETIME PRN PRN Reason: Nausea/Vomiting Ondansetron HCl (Zofran) Confirm Administered Dose 4 mg .ROUTE .STK-MED ONE Stop: 07/11/18 13:02 Ondansetron HCl (Zofran) 4 mg IVPUSH ONETIME PRN PRN Reason: Nausea/Vomiting Stop: 07/11/18 23:00 Oxytocin (Pitocin) Confirm Administered Dose 10 unit .ROUTE .STK-MED ONE Stop: 07/11/18 13:02 Sodium Bicarbonate (Sodium Bicarbonate 8.4%) Confirm Administered Dose 50 meq .ROUTE .STK-Infantium ONE Stop: 07/11/18 13:04 Sodium Chloride (Saline Flush) 10 ml FLUSH ASDIRECTED PRN PRN Reason: Keep Vein Open Sodium Chloride (Saline Flush) 10 ml FLUSH ASDIRECTED PRN PRN Reason: Keep Vein Open - Infant Interaction Infant Disposition, : [place] to Nursery Support Person: Significant Other - Recovery Exam Fundal Tone: Firm Fundal Level: At Umbilicus Fundal Placement: Midline Lochia Amount: Small Lochia Color: Rubra/Red Perineum Description: Intact, Minimal Bruising/Swelling Episiotomy/Laceration: None Bladder Status: Voiding Urinary Elimination: Indwelling Catheter - Exam General: Alert, Oriented HEENT: Pupils Equal Neck: Supple Lungs: Clear to Auscultation, Normal Respiratory Effort Cardiovascular: Regular Rate, Regular Rhythm GI/Abdominal Exam: Normal Bowel Sounds, Soft, Non-Tender, No Organomegaly, No Distention, No Abnormal Bruit, No Mass, Pelvis Stable Extremities: Normal Inspection, Normal Range of Motion, Non-Tender, No Pedal Edema, Normal Capillary Refill Skin: Warm, Dry, Intact Wound/Incisions: Healing Well Neurological: No New Focal Deficit Psy/Mental Status: Alert, Normal Affect, Normal Mood - Problem List Review Problem List Initiated/Reviewed/Updated: Yes - Assessment Assessment:: POD2 from [facility] Doing well. Had fairly significant anemia initially and has had tachycardia which has improved since about 9pm last night. Still occasionally 100 but not symptomatic. Doing well with ambulation. CBC this am again slightly lower and baby in level 2 so will recheck again tomorrow but at this point patient doing well and no indication for transfusion. - Plan Plan:: Refer to observation for elective induction of labor with trial of labor after section. The risks, benefits and alternatives were discussed with the patient including risk of uterine rupture, injury to surrounding organs including bowel, bladder and ureters and infant as well as poor outcome. Patient signed consent for trial of labor after section with possible repeat section. Continue Pitocin for induction of labor Continuous monitoring Place IV and have Lactated Ringer's at 125 ml/hr May have small amounts of regular diet Activity as tolerated May have epidural as desired Plans to breast-feed after delivery Anticipate vaginal delivery unless otherwise indicated Wesley Noguera M.D. 9:23 PM 07/10/2018
[2018-07-13] MEDS: Prenatal Multivitamin with Calcium/Folic Acid/Iron Tab PO SCH (09:24)
[2018-07-13] MEDS: Ferrous Sulfate 325 MG Tab PO SCH ×3 (09:24→17:03)
[2018-07-13] MEDS: Docusate Sodium 100 MG Cap PO PRN (09:26)
[2018-07-14] MEDS: Acetaminophen/oxyCODONE 325-5 MG Tab PO PRN ×2 (04:11→11:25)
--- NOTE | 2018-07-14 04:53 | PCM.DCSUM1 ---
Discharge Summary - Hospital Course Brief History: Admitted for tolac. Decision for . RCS without difficulty. Anemia and tachycardia with normal EKG. CBC stable and pt tolerating anemia with no tachycardia by discharge. Diagnosis: Stroke: No - Discharge Data Discharge Date: 07/14/18 Discharge Disposition: Home, Self-Care 01 Condition: Good - Patient Summary/Data Operative Procedure(s) Performed: Repeat section after failed induction of labor after section - Patient Instructions Diet: Usual Diet as Tolerated Activity: No Strenuous Activities Driving: Do Not Drive Showering/Bathing: May Shower Notify Provider of: Fever, Increased Pain, Swelling and Redness, Drainage, Nausea and/or Vomiting - Discharge Plan *PRESCRIPTION DRUG MONITORING PROGRAM REVIEWED*: No *COPY OF PRESCRIPTION DRUG MONITORING REPORT IN PATIENT SERAFIN: No Home Medications: Home Meds PNV95/Ferrous Fumarate/FA [ Tablet] 1 each PO DAILY 07/10/18 [History] Referrals: Wesley Noguera MD [Physician] - (2 wka) - Discharge Summary/Plan Comment DC Time >30 min.: No - General Info Date of Service: 07/14/18 Functional Status: Reports: Pain Controlled - Review of Systems General: Reports: No Symptoms HEENT: Reports: No Symptoms Pulmonary: Reports: No Symptoms. Denies: Shortness of Breath Cardiovascular: Reports: No Symptoms. Denies: Lightheadedness Gastrointestinal: Reports: No Symptoms Genitourinary: Reports: No Symptoms Musculoskeletal: Reports: No Symptoms Skin: Reports: No Symptoms Neurological: Reports: No Symptoms Psychiatric: Reports: No Symptoms - Patient Data Vitals - Most Recent: Last Vital Signs Temp 36.6 C 07/13/18 21:29 Pulse 99 07/13/18 21:29 Resp 14 07/13/18 21:29 BP 127/71 07/13/18 21:29 Pulse Ox 99 07/13/18 21:29 Weight - Most Recent: 88.904 kg I&O - Last 24 hours: Intake & Output 07/13/18 07/13/18 07/14/18 14:59 22:59 06:59 Intake Total 0 210 Balance 0 210 Lab Results - Last 24 hrs: Laboratory Results - last 24 hr 07/13/18 Range/Units 06:35 WBC 12.59 H (3.98-10.04) K/mm3 RBC 3.14 L (3.98-5.22) M/mm3 Hgb 7.5 L (11.2-15.7) gm/L Hct 24.4 L (34.1-44.9) % MCV 77.7 L (79.4-94.8) fl MCH 23.9 L (25.6-32.2) pg MCHC 30.7 L (32.2-35.5) g/dl RDW Std Deviation 43.0 (36.4-46.3) fL Plt Count 114 L (182-369) K/mm3 MPV 13.0 H (9.4-12.3) fl Neut % (Auto) 81.8 H (34.0-71.1) % Lymph % (Auto) 10.0 L (19.3-51.7) % [place] % (Auto) 7.1 (4.7-12.5) % Eos % (Auto) 0.8 (0.7-5.8) Baso % (Auto) 0.1 (0.1-1.2) % Neut # (Auto) 10.31 H (1.56-6.13) K/mm3 Lymph # (Auto) 1.26 (1.18-3.74) K/mm3 [place] # (Auto) 0.89 H (0.24-0.36) K/mm3 Eos # (Auto) 0.10 (0.04-0.36) K/mm3 Baso # (Auto) 0.01 (0.01-0.08) K/mm3 Med Orders - Current: Current Medications Diphenhydramine HCl (Benadryl) 25 mg IVPUSH Q6H PRN PRN Reason: Itching or Nausea Diphenhydramine HCl (Benadryl) 25 mg IV Q4H PRN PRN Reason: Itching Docusate Sodium (Colace) 100 mg PO Q12H PRN PRN Reason: Constipation Last Admin: 07/13/18 09:26 Dose: 100 mg Emollient Ointment (Lansinoh Hpa) 0 gm TOP ASDIRECTED PRN PRN Reason: Sore Nipples Ephedrine Sulfate (Ephedrine Sulfate) 5 mg IVPUSH SEECOMMENT PRN PRN Reason: Other Ferrous Sulfate (Ferrous Sulfate) 325 mg PO BIDMEALS CLAY Last Admin: 07/13/18 17:03 Dose: Not Given Oxytocin/Lactated Ringer's (Pitocin In Lr 10 Units/1,000 Ml) 10 unit in 1,000 mls @ 100 mls/hr IV .CONTINUOUS [facility] Lactated Ringer's (Ringers, Lactated) 1,000 mls @ 125 mls/hr IV ASDIRECTED [facility] Last Admin: 07/12/18 06:54 Dose: 125 mls/hr Ibuprofen (Motrin) 600 mg PO Q6H PRN PRN Reason: Pain Last Admin: 07/13/18 21:31 Dose: 600 mg Magnesium Hydroxide (Milk Of Magnesia) 30 ml PO BEDTIME PRN PRN Reason: Constipation Naloxone HCl (Narcan) 0.1 mg IVPUSH SEECOMMENT PRN PRN Reason: Respiratory Depression Oxycodone/Acetaminophen (Percocet 325-5 Mg) 1 tab PO Q6H PRN PRN Reason: Pain (moderate 4-6) Oxycodone/Acetaminophen (Percocet 325-5 Mg) 2 tab PO Q6H PRN PRN Reason: Pain (severe 7-10) Last Admin: 07/14/18 04:11 Dose: 2 tab Prenat Multivit/Insulation Nozzleman/Iron/Folic Ac ( Plus Iron) 1 each PO DAILY [facility] Last Admin: 07/13/18 09:24 Dose: 1 each Sodium Chloride (Saline Flush) 10 ml FLUSH ASDIRECTED PRN PRN Reason: Keep Vein Open Last Admin: 07/13/18 18:28 Dose: 10 ml Discontinued Medications Bupivacaine HCl (Marcaine 0.5%) Confirm Administered Dose 30 ml .ROUTE .STK-MED ONE Stop: 07/11/18 13:03 Last Admin: 07/11/18 14:09 Dose: 20 ml Bupivacaine HCl (Sensorcaine-Mpf 0.25%) 10 ml .ROUTE .STK-MED ONE Stop: 07/10/18 22:01 Cefazolin Sodium (Ancef) Confirm Administered Dose 2 gm .ROUTE .STK-MED ONE Stop: 07/11/18 13:02 Citric Acid/Sodium Citrate (Bicitra Solution) 30 ml PO ONETIME ONE Stop: 07/11/18 12:57 Last Admin: 07/11/18 13:11 Dose: 30 ml Diphenhydramine HCl (Benadryl) 25 mg IVPUSH Q6H PRN PRN Reason: pruritis Last Admin: 07/11/18 12:13 Dose: 25 mg Diphenhydramine HCl (Benadryl) 25 mg IVPUSH Q6H PRN PRN Reason: pruritis Stop: 07/11/18 23:00 Ephedrine Sulfate (Ephedrine Sulfate) 5 mg IVPUSH ASDIRECTED PRN PRN Reason: Hypotension Ephedrine Sulfate (Ephedrine In Ns) Confirm Administered Dose 25 mg .ROUTE .STK- MED ONE Stop: 07/11/18 14:39 Fentanyl (Sublimaze) 100 mcg EPIDUR Q3H PRN PRN Reason: Pain Last Admin: 07/11/18 03:16 Dose: 100 mcg Fentanyl (Sublimaze) Confirm Administered Dose 100 mcg .ROUTE .STK-MED ONE Stop: 07/11/18 14:02 Fentanyl (Sublimaze) 50 mcg IVPUSH Q5M PRN PRN Reason: Pain Stop: 07/11/18 23:00 Fentanyl/Bupivacaine HCl (Odpjzkoi-Tyein-Ht 2 Mcg/Ml-0.125%) 100 ml EP ASDIRECTED CLAY Last Admin: 07/11/18 09:24 Dose: 100 ml Phenylephrine HCl 1 mg/ Sodium (Chloride) 10.1 mls @ 1 mls/sec IV TITRATE CLAY; Protocol Lactated Ringer's (Ringers, Lactated) 1,000 mls @ 100 mls/hr IV ASDIRECTED CLAY Last Admin: 07/11/18 10:31 Dose: 100 mls/hr Oxytocin/Lactated Ringer's (Pitocin In Lr 10 Units/1,000 Ml) 10 unit in 1,000 mls @ 12 mls/hr IV TITRATE CLYA; Protocol Last Titration: 07/11/18 11:05 Dose: 2 munits/min, 12 mls/hr Oxytocin/Lactated Ringer's (Pitocin In Lr 10 Units/1,000 Ml) 10 unit in 1,000 mls @ 500 mls/hr IV .CONTINUOUS CLAY Cefazolin Sodium/Dextrose 2 gm (/ Premix) 50 mls @ 100 mls/hr IV ONETIME ONE Stop: 07/11/18 13:40 Last Admin: 07/12/18 15:04 Dose: Not Given Lactated Ringer's (Ringers, Lactated) 1,000 mls @ 125 mls/hr IV ASDIRECTED [facility] Oxytocin/Lactated Ringer's (Pitocin In Lr 10 Units/1,000 Ml) 10 unit in 1,000 mls @ 100 mls/hr IV ASDIRECTED [facility]; Protocol Lactated Ringer's (Ringers, Lactated) Confirm Administered Dose 2,000 mls @ as directed .ROUTE .STK-MED ONE Stop: 07/11/18 13:02 Lactated Ringer's (Ringers, Lactated) 1,000 mls @ 125 mls/hr IV ASDIRECTED [facility] Stop: 07/12/18 00:16 Last Admin: 07/11/18 19:09 Dose: 125 mls/hr Lactated Ringer's (Ringers, Lactated) 1,000 mls @ 999 mls/hr IV .BOLUS ONE Stop: 07/11/18 17:59 Last Admin: 07/11/18 17:15 Dose: 999 mls/hr Lactated Ringer's (Ringers, Lactated) 1,000 mls @ 125 mls/hr IV ASDIRECTED [facility] Ketorolac Tromethamine (Toradol) Confirm Administered Dose 30 mg .ROUTE .STK- MED ONE Stop: 07/11/18 13:02 Ketorolac Tromethamine (Toradol) 30 mg IVPUSH Q6H [facility] Stop: 07/12/18 08:31 Last Admin: 07/12/18 08:48 Dose: 30 mg Lidocaine/Epinephrine (Xylocaine-Mpf 2%-Epi 1:200,000) Confirm Administered Dose 20 ml .ROUTE .STK-MED ONE Stop: 07/11/18 13:04 Lidocaine/Epinephrine (Xylocaine-Mpf 1.5% W/Epinephrine 1:200,000) 5 ml .ROUTE .STK-MED ONE Stop: 07/10/18 22:01 Meperidine HCl (Demerol) Confirm Administered Dose 50 mg .ROUTE .STK-MED ONE Stop: 07/11/18 14:30 Metoclopramide HCl (Reglan) 10 mg IVPUSH ONETIME ONE Stop: 07/11/18 12:57 Last Admin: 07/11/18 13:11 Dose: 10 mg Morphine Sulfate (Duramorph Pf) Confirm Administered Dose 1 mg .ROUTE .STK-MED ONE Stop: 07/11/18 13:02 Nalbuphine HCl (Nubain) 10 mg IVPUSH Q2H PRN PRN Reason: pain Ondansetron HCl (Zofran) 4 mg IVPUSH ONETIME PRN PRN Reason: Nausea/Vomiting Ondansetron HCl (Zofran) Confirm Administered Dose 4 mg .ROUTE .STK-MED ONE Stop: 07/11/18 13:02 Ondansetron HCl (Zofran) 4 mg IVPUSH ONETIME PRN PRN Reason: Nausea/Vomiting Stop: 07/11/18 23:00 Oxytocin (Pitocin) Confirm Administered Dose 10 unit .ROUTE .STK-MED ONE Stop: 07/11/18 13:02 Sodium Bicarbonate (Sodium Bicarbonate 8.4%) Confirm Administered Dose 50 meq .ROUTE .STK-MED ONE Stop: 07/11/18 13:04 Sodium Chloride (Saline Flush) 10 ml FLUSH ASDIRECTED PRN PRN Reason: Keep Vein Open Sodium Chloride (Saline Flush) 10 ml FLUSH ASDIRECTED PRN PRN Reason: Keep Vein Open - Exam General: Reports: Alert, Oriented HEENT: Reports: Pupils Equal, Pupils Reactive, EOMI, Mucous Membr. Moist/[place] Neck: Reports: Supple Lungs: Reports: Clear to Auscultation, Normal Respiratory Effort Cardiovascular: Reports: Regular Rate, Regular Rhythm GI/Abdominal Exam: Normal Bowel Sounds, Soft, Non-Tender, No Organomegaly, No Distention, No Abnormal Bruit, No Mass, Pelvis Stable Back Exam: Reports: Normal Inspection, Full Range of Motion Extremities: Normal Inspection, Normal Range of Motion, Non-Tender, No Pedal Edema, Normal Capillary Refill Skin: Reports: Warm, Dry, Intact Wound/Incisions: Reports: Healing Well Neurological: Reports: No New Focal Deficit Psy/Mental Status: Reports: Alert, Normal Affect, Normal Mood EKG INTERPRETATION Comparison: No Change
[2018-07-14] MEDS: Ferrous Sulfate 325 MG Tab PO SCH (08:46)
[2018-07-14] MEDS: Prenatal Multivitamin with Calcium/Folic Acid/Iron Tab PO SCH (08:46)
[2018-07-14] MEDS: Docusate Sodium 100 MG Cap PO PRN (11:27)
[2018-07-14] MEDS: Ibuprofen 600 MG Tab PO PRN (11:28)
== END 2018-07-14 11:45 | disposition home or self-care (01) | DRG 787 ==
LOC: EDSTATUS 07:30 → JD.OB 14:17 → EDSTATUS 07-11 07:30 → OBSVTOIN 07-11 14:17 → JD.OB 07-11 14:18
PROVIDERS: ADMIT Obstetrics & Gynecology; ATTEND Obstetrics & Gynecology
PROC: 3E033VJ Introduction of Other Hormone into Peripheral Vein, Percutaneous Approach (ICD-10-PCS; principal; 2018-07-11)
PROC: 10D00Z1 Extraction of Products of Conception, Low, Open Approach (ICD-10-PCS; principal; 2018-07-11)
PROC: 10H07YZ Insertion of Other Device into Products of Conception, Via Natural or Artificial Opening (ICD-10-PCS; principal; 2018-07-11)
PROC: 00HU33Z Insertion of Infusion Device into Spinal Canal, Percutaneous Approach (ICD-10-PCS; 2018-07-11)
PROC: 3E0R3BZ Introduction of Anesthetic Agent into Spinal Canal, Percutaneous Approach (ICD-10-PCS; 2018-07-11)
DX: O34.219 Maternal care for unspecified type scar from previous cesarean delivery (principal); O86.4 Pyrexia of unknown origin following delivery; O72.1 Other immediate postpartum hemorrhage; N85.8 Other specified noninflammatory disorders of uterus; O90.81 Anemia of the puerperium; D64.9 Anemia, unspecified; Z3A.39 39 weeks gestation of pregnancy; O99.62 Diseases of the digestive system complicating childbirth; Z37.0 Single live birth; K21.9 Gastro-esophageal reflux disease without esophagitis; O72.3 Postpartum coagulation defects; D69.6 Thrombocytopenia, unspecified; O61.0 Failed medical induction of labor
CPT/HCPCS: 01967; 01968; 36415; 51702; 59025; 80053; 85025; 86592; 86850; 86900; 86901; 93005; 94762; A9270-GY; J0690; J1200; J1885; J2175; J2274; J2405; J2590; J2765; J3010; J3490; J7050; J7120